=== PATIENT | female | born 1950 | race Caucasian/White ===

== ENCOUNTER 2020-03-07 00:04 | Observation (INO) | payer MEDICARE ==
[2020-03-07] MEDS ORDERED: Sodium Chloride 0.9% 10 ML Syringe FLUSH PRN (00:09)
[2020-03-07] MEDS ORDERED: Ondansetron 4 MG/2 ML SDV IVPUSH ONE (00:17)
--- NOTE | 2020-03-07 00:20 | EDM.PDOC ---
ED HPI GENERAL MEDICAL PROBLEM - General Chief Complaint: Abdominal Pain Stated Complaint: ABD PAIN Time Seen by Provider: 03/07/20 00:10 Source of Information: Reports: Patient, RN Notes Reviewed History Limitations: Reports: No Limitations - History of Present Illness INITIAL COMMENTS - FREE TEXT/NARRATIVE: This patient presents to the ED for evaluation of abdominal pain. She states the pain started about 2 hours ago and is "everywhere" in her abdomen and back. She states she had a gastric bypass procedure in 10/2019 in [place] but does not know specifically what was done. She states "they took out my whole stomach " because of cysts. She did not have the surgery for weight loss but has lost about 40 pounds. She states she has been eating and drinking fine but has some nausea that started at about the same time as the pain did. She did eat a "regular" dinner that was a frozen dinner approximately 10.5 ounces. Patient has been away from home ([place]) fishing for the past 3 weeks. She states she has not had any recent illnesses because she has not had any contact with other people. She denies fever, cough, shortness of breath, or sore throat. Onset: Sudden Onset Date: 03/06/20 Onset Time: 22:00 Duration: Constant, Getting Worse, Other (patient crying with pain) Location: Reports: Abdomen, Back Quality: Reports: Sharp, Stabbing Severity: Severe Improves with: Reports: None, Other (has not tried anything for the pain; states "I can't take pills") Worsens with: Reports: Breathing, Other (palpation), Movement Associated Symptoms: Reports: Nausea/Vomiting (has been spitting up liquid). Denies: Chest Pain, Cough, Diaphoresis, Shortness of Breath, Weakness Abdominal Pain Score (Numeric/FACES): 10 - Related Data Allergies Allergy/AdvReac Type Severity Reaction Status Date / Time No Known Allergies Allergy Verified 03/07/20 01:31 Home Meds: Home Meds atorvaSTATin Calcium [Lipitor] 20 mg PO DAILY 03/07/20 [History] ED ROS GENERAL - Review of Systems Review Of Systems: Comprehensive ROS is negative, except as noted in HPI. ED EXAM, GI/ABD - Physical Exam Exam: See Below Exam Limited By: No Limitations (complaining of pain; difficulty answering questions related to pain) General Appearance: Alert, No Apparent Distress, Anxious, Severe Distress Eyes: Bilateral: Normal Appearance Ears: Normal External Exam Nose: Normal Inspection Throat/Mouth: Normal Inspection Head: Atraumatic, Normocephalic Neck: Normal Inspection, Full Range of Motion Respiratory/Chest: No Respiratory Distress, Lungs Clear, Normal Breath Sounds, No Accessory Muscle Use Cardiovascular: Regular Rate, Rhythm GI/Abdominal Exam: Soft, No Organomegaly, No Distention, Guarding, Tender ( Exquisite tenderness with any touch in all quadrants), Other (absent bowel sounds). No: Distended, Rigid, Rebound Neurological: Alert, Oriented Psychiatric: Anxious, Tearful Skin Exam: Warm, Dry, Intact Course - Vital Signs Last Recorded V/S: Last Vital Signs Temp 36.8 C 03/07/20 00:04 Pulse 91 03/07/20 00:04 Resp 20 03/07/20 00:04 BP 151/75 H 03/07/20 00:04 Pulse Ox 100 03/07/20 00:04 - Orders/Labs/Meds Orders: Active Orders 24 hr Category Date Time Status Abdomen Pelvis wo Cont [CT] Stat Exams 03/07/20 00:05 Taken Sodium Chloride 0.9% [Saline Flush] Med 03/07/20 00:09 Active 10 ml FLUSH ASDIRECTED PRN Saline Lock Insert [OM.PC] Stat Oth 03/07/20 00:09 Ordered Medication Orders Sodium Chloride (Saline Flush) 10 ml FLUSH ASDIRECTED PRN PRN Reason: Keep Vein Open Last Admin: 03/07/20 00:25 Dose: 10 ml Meds: Medications Generic Name Dose Route Start Last Admin Trade Name Freq PRN Reason Stop Dose Admin Sodium Chloride 10 ml 03/07/20 00:09 03/07/20 00:25 Saline Flush FLUSH 10 ml ASDIRECTED PRN Administration Keep Vein Open Discontinued Medications Generic Name Dose Route Start Last Admin Trade Name Freq PRN Reason Stop Dose Admin Fentanyl 50 mcg 03/07/20 00:09 03/07/20 01:27 Sublimaze IVPUSH 50 mcg Q5M PRN Administration Pain Ondansetron HCl 4 mg 03/07/20 00:17 03/07/20 00:41 Zofran IVPUSH 03/07/20 00:18 4 mg ONETIME ONE Administration - Re-Assessments/Exams Free Text/Narrative Re-Assessment/Exam: 03/07/20 02:07 This patient presents to the ED for evaluation of abdominal pain. A CT of pelvis and abdomen did not identify a definitive cause for her excruciating pain. The scan did identify a moderate amount of stool as well as some non- obstructive gall stones but did not identify any acute findings. While she did get relief from the interventions provided in the ED, her pain was out of proportion to the clinical findings. For this reason she will be admitted to the inpatient unit for serial abdominal exams and reassessment. Arrangements were made for to be admitted to the inpatient unit on observation status. Departure - Departure Time of Disposition: 02:15 Disposition: Refer to Observation Condition: Good Clinical Impression: Abdominal pain - Discharge Information *PRESCRIPTION DRUG MONITORING PROGRAM REVIEWED*: No Sepsis Event Note - Focused Exam Vital Signs: Vital Signs Temp Pulse Resp BP Pulse Ox 03/07/20 00:04 36.8 C 91 20 151/75 H 100 Date Exam was Performed: 03/07/20 Time Exam was Performed: 02:18 - My Orders Last 24 Hours: My Active Orders 03/07/20 00:05 Abdomen Pelvis wo Cont [CT] Stat 03/07/20 00:09 Sodium Chloride 0.9% [Saline Flush] 10 ml FLUSH ASDIRECTED PRN Saline Lock Insert [OM.PC] Stat - Assessment/Plan Last 24 Hours: My Active Orders 03/07/20 00:05 Abdomen Pelvis wo Cont [CT] Stat 03/07/20 00:09 Sodium Chloride 0.9% [Saline Flush] 10 ml FLUSH ASDIRECTED PRN Saline Lock Insert [OM.PC] Stat
[2020-03-07] MEDS: fentaNYL 100 MCG/2 ML SDV IVPUSH PRN ×2 (00:25→01:27)
[2020-03-07] MEDS ORDERED: Morphine 4 MG/ML VIAL IVPUSH PRN (02:23)
[2020-03-07] MEDS ORDERED: Acetaminophen 325 MG Tab PO PRN (02:23)
--- NOTE | 2020-03-07 02:34 | PCM.HP.2 ---
H&P History of Present Illness - General Date of Service: 03/07/20 Admit Problem/Dx: Admission Diagnosis/Problem Admission Diagnosis/Problem Abdominal pain Source of Information: Patient History Limitations: Reports: No Limitations - History of Present Illness Initial Comments - Free Text/Narative: This patient presents to the ED for evaluation of abdominal pain. She states the pain started about 2 hours ago and is "everywhere" in her abdomen and back. She states she had a gastric bypass procedure in 10/2019 in [place] but does not know specifically what was done. She states "they took out my whole stomach " because of cysts. She did not have the surgery for weight loss but has lost about 40 pounds. She states she has been eating and drinking fine but has some nausea that started at about the same time as the pain did. She did eat a "regular" dinner that was a frozen dinner approximately 10.5 ounces. Patient has been away from home ([place]) fishing for the past 3 weeks. She states she has not had any recent illnesses because she has not had any contact with other people. She denies fever, cough, shortness of breath, or sore throat. Onset: Sudden Onset Date: 03/06/20 Onset Time: 22:00 Duration: Constant, Getting Worse, Other (patient crying with pain) Location: Reports: Abdomen, Back Quality: Reports: Sharp, Stabbing Severity: Severe Improves with: Reports: None, Other (has not tried anything for the pain; states "I can't take pills") Worsens with: Reports: Breathing, Other (palpation), Movement Associated Symptoms: Reports: Nausea/Vomiting (has been spitting up liquid). Denies: Chest Pain, Cough, Diaphoresis, Shortness of Breath, Weakness Symptom Onset Date: 03/07/20 Symptom Onset Time: 02:30 Abdominal Pain Score (Numeric/FACES): 10 - Related Data Allergies/Adverse Reactions: Allergies Allergy/AdvReac Type Severity Reaction Status Date / Time No Known Allergies Allergy Verified 03/07/20 01:31 Home Medications: Home Meds atorvaSTATin Calcium [Lipitor] 20 mg PO DAILY 03/07/20 [History] Past Medical History Other Gastrointestinal History: gastrib bypass in 10/2019 [employer] History: Reports: Other OB/BYN History: 4 pregnancies Social & Family History - Family History Family Medical History: Noncontributory - Tobacco Use Smoking Status *Q: Never Smoker - Caffeine Use Caffeine Use: Reports: Tea - Recreational Drug Use Recreational Drug Use: No H&P Review of Systems - Review of Systems: Review Of Systems: Comprehensive ROS is negative, except as noted in HPI. Exam - Exam Exam: See Below - Vital Signs Vital Signs: Last Vital Signs Temp 36.6 C 03/07/20 02:28 Pulse 107 H 03/07/20 02:28 Resp 16 03/07/20 02:28 BP 146/62 H 03/07/20 02:28 Pulse Ox 99 03/07/20 02:28 Weight: 69.456 kg - Exam General: Alert, Oriented, Mild Distress HEENT: PERRLA, Conjunctiva Clear, Mucosa Moist & [place], Nares Patent, Posterior Pharynx Clear Neck: Supple Lungs: Clear to Auscultation, Normal Respiratory Effort Cardiovascular: Regular Rate, Regular Rhythm GI/Abdominal Exam: Soft, Non-Tender, No Organomegaly, No Distention, Abnormal Bowel Sounds (diminished) Extremities: Normal Inspection, Normal Capillary Refill Skin: Warm, Dry Neuro Extensive - Mental Status: Alert, Oriented x3, Normal Mood/Affect Psychiatric: Alert Sepsis Event Note - Evaluation Sepsis Screening Result: No Definite Risk - Focused Exam Vital Signs: Vital Signs Temp Pulse Resp BP Pulse Ox 03/07/20 02:28 36.6 C 107 H 16 146/62 H 99 03/07/20 00:04 36.8 C 91 20 151/75 H 100 Date Exam was Performed: 03/07/20 Time Exam was Performed: 02:34 - Problem List (1) Abdominal pain SNOMED Code(s): 77053373 ICD Code: R10.9 - UNSPECIFIED ABDOMINAL PAIN Status: Acute Priority: High Current Visit: Yes Qualifiers: Abdominal location: generalized Qualified Code(s): R10.84 - Generalized abdominal pain Problem List Initiated/Reviewed/Updated: Yes Orders Last 24hrs: Active Orders 24 hr Category Date Time Status Patient Status [ADT] Routine ADT 03/07/20 02:23 Ordered Intake and Output [RC] QSHIFT Care 03/07/20 02:26 Ordered Oxygen Therapy [RC] PRN Care 03/07/20 02:23 Ordered VTE/DVT Education [RC] Per Unit Routine Care 03/07/20 02:23 Ordered Vital Signs [RC] Q4H Care 03/07/20 02:23 Ordered Nothing per Oral Now Diet [DIET] Diet 03/07/20 Breakfast Ordered Abdomen Pelvis wo Cont [CT] Stat Exams 03/07/20 00:05 Taken Acetaminophen [Tylenol] Med 03/07/20 02:23 Ordered 650 mg PO Q4H PRN Morphine Med 03/07/20 02:23 Ordered 4 mg IVPUSH Q4H PRN Sodium Chloride 0.9% [Saline Flush] Med 03/07/20 00:09 Active 10 ml FLUSH ASDIRECTED PRN atorvaSTATin [Lipitor] Med 03/07/20 08:00 Ordered 20 mg PO DAILY Saline Lock Insert [OM.PC] Stat Oth 03/07/20 00:09 Ordered Resuscitation Status Routine Resus Stat 03/07/20 02:23 Ordered Medication Orders Acetaminophen (Tylenol) 650 mg PO Q4H PRN PRN Reason: Pain (Mild 1-3)/fever Atorvastatin Calcium (Lipitor) 20 mg PO DAILY ELIEL Morphine Sulfate (Morphine) 4 mg IVPUSH Q4H PRN PRN Reason: Pain (severe 7-10) Sodium Chloride (Saline Flush) 10 ml FLUSH ASDIRECTED PRN PRN Reason: Keep Vein Open Last Admin: 03/07/20 00:25 Dose: 10 ml Assessment/Plan Comment:: 02:30 Plan NPO Serial abdominal exams
[2020-03-07] MEDS ORDERED: atorvaSTATin 20 MG Tab PO SCH (08:00)
--- NOTE | 2020-03-07 08:00 | CT ---
DATE OF SERVICE: 03/07/20 CLINICAL DATA: abdominal pain UNENHANCED ABDOMEN AND PELVIC CT: Multislice acquisition through the abdomen and pelvis without IV or oral contrast was performed. No priors. The lung bases are clear. The heart size is normal. The unenhanced liver appears normal. No focal hepatic lesions. The gallbladder is mildly distended. There are multiple calcified gallstones noted within the dependent gallbladder. No pericholecystic fluid. The spleen appears normal. The pancreas appears normal. The right and left adrenals appear normal. The right and left kidneys appear normal. No nephrocalcinosis or nephrolithiasis. No hydronephrosis or hydroureter. The bladder is partially fluid-filled. It appears normal. The patient is status post hysterectomy. No evidence of appendicitis. There are surgical changes involving the stomach consistent with prior gastric bypass. No free air. No free fluid. No dilated loops of bowel. No adenopathy. No aortic aneurysm. There is degenerative disc disease at multiple levels in the lumbar spine. [id number]
--- NOTE | 2020-03-07 09:56 | PCM.DCSUM1 ---
Discharge Summary - Hospital Course Free Text/Narrative:: Patient presented with excruciating abdominal pain. This morning she is completely pain free, without nausea. Diagnosis: Stroke: No - Discharge Data Discharge Date: 03/07/20 Discharge Disposition: Home, Self-Care 01 Condition: Good - Referral to Home Health Primary Care Physician: PCP None - Discharge Diagnosis/Problem(s) (1) Abdominal pain SNOMED Code(s): 01288445 ICD Code: R10.9 - UNSPECIFIED ABDOMINAL PAIN Status: Acute Priority: High Current Visit: Yes Qualifiers: Abdominal location: generalized Qualified Code(s): R10.84 - Generalized abdominal pain - Patient Instructions Diet: Usual Diet as Tolerated Driving: May Drive Today Showering/Bathing: May Shower Notify Provider of: Fever, Increased Pain, Nausea and/or Vomiting - Discharge Plan *PRESCRIPTION DRUG MONITORING PROGRAM REVIEWED*: No Home Medications: Home Meds atorvaSTATin Calcium [Lipitor] 20 mg PO DAILY 03/07/20 [History] Patient Handouts: Abdominal Pain, Adult Forms: ED Department Discharge, ED Return to Work/School Form Referrals: PCP,None [Primary Care Provider] - - Discharge Summary/Plan Comment DC Time >30 min.: No - General Info Date of Service: 03/07/20 Admission Dx/Problem (Free Text: Admission Diagnosis/Problem Admission Diagnosis/Problem Abdominal pain Subjective Update: Patient is pain free, denies nausea and vomiting. She has taken and retained clear liquids without difficulty. Anxious for discharge. Functional Status: Reports: Pain Controlled - Review of Systems General: Reports: No Symptoms HEENT: Reports: No Symptoms Pulmonary: Reports: No Symptoms Cardiovascular: Reports: No Symptoms Gastrointestinal: Reports: No Symptoms Musculoskeletal: Reports: No Symptoms Skin: Reports: No Symptoms Neurological: Reports: No Symptoms - Patient Data Vitals - Most Recent: Last Vital Signs Temp 36.3 C 03/07/20 06:23 Pulse 75 03/07/20 06:23 Resp 16 03/07/20 06:23 BP 112/56 L 03/07/20 06:23 Pulse Ox 95 03/07/20 06:23 Weight - Most Recent: 69.4 kg I&O - Last 24 hours: Intake & Output 03/06/20 03/07/20 03/07/20 22:59 06:59 14:59 Intake Total 0 Output Total 0 Balance 0 Med Orders - Current: Current Medications Acetaminophen (Tylenol) 650 mg PO Q4H PRN PRN Reason: Pain (Mild 1-3)/fever Atorvastatin Calcium (Lipitor) 20 mg PO DAILY ELIEL Last Admin: 03/07/20 09:38 Dose: Not Given Morphine Sulfate (Morphine) 4 mg IVPUSH Q4H PRN PRN Reason: Pain (severe 7-10) Sodium Chloride (Saline Flush) 10 ml FLUSH ASDIRECTED PRN PRN Reason: Keep Vein Open Last Admin: 03/07/20 00:25 Dose: 10 ml Discontinued Medications Fentanyl (Sublimaze) 50 mcg IVPUSH Q5M PRN PRN Reason: Pain Last Admin: 03/07/20 01:27 Dose: 50 mcg Ondansetron HCl (Zofran) 4 mg IVPUSH ONETIME ONE Stop: 03/07/20 00:18 Last Admin: 03/07/20 00:41 Dose: 4 mg - Exam General: Reports: Alert, Oriented, Cooperative, No Acute Distress HEENT: Reports: Pupils Equal, Pupils Reactive, Mucous Membr. Moist/[place] Neck: Reports: Supple Lungs: Reports: Clear to Auscultation, Normal Respiratory Effort Cardiovascular: Reports: Regular Rate, Regular Rhythm GI/Abdominal Exam: Normal Bowel Sounds, Soft, Non-Tender, No Organomegaly, No Distention Extremities: Normal Range of Motion, Normal Capillary Refill Skin: Reports: Warm, Dry, Intact Neurological: Reports: No New Focal Deficit Psy/Mental Status: Reports: Alert, Normal Affect, Normal Mood
== END 2020-03-07 10:00 | disposition home or self-care (01) ==
LOC: LB.ED 00:04 → LB.MS 01:40 → UNDOADMOB 01:40 → LB.MS 02:23
PROVIDERS: ADMIT Nurse Practitioner; ATTEND Nurse Practitioner
DX: R10.84 Generalized abdominal pain (principal); R11.2 Nausea with vomiting, unspecified; Z79.899 Other long term (current) drug therapy; Z98.84 Bariatric surgery status
CPT/HCPCS: 74176; 96374; 96375; 96376; 99285; J2405; J3010; 99234; G0378